=== PATIENT | female | born 1940 | race Hispanic/Latino ===

== ENCOUNTER 2018-06-11 08:22 | Emergency (ER) | payer MEDICARE ==
[~2018-06-11] VITALS: Ht 149.9 cm; Wt 74.8 kg
[2018-06-11] MEDS ORDERED: HYDROCHLOROTHIA25 MG PO (08:40)
[2018-06-11] MEDS ORDERED: ACIDOPHILUS1 EAC1 (08:40)
[2018-06-11] MEDS ORDERED: LISINOPRIL20 MG PO (08:40)
== END 2018-06-11 09:40 | disposition home or self-care (01) ==
LOC: FSED 08:22
DX: I10 Essential (primary) hypertension (principal)
CPT/HCPCS: 99283

== ENCOUNTER 2018-10-04 16:37 | Observation (INO) | payer MEDICARE, OTHER ==
[~2018-10-04] VITALS: Ht 149.9 cm; Wt 78.6 kg
[~2018-10-04 16:37] MED LIST: ACIDOPHILUS1 EAC1 PO; HYDROCHLOROTHIA25 MG PO; LISINOPRIL20 MG PO
--- OUTSIDE RECORDS SUMMARY | 2018-10-04 16:39 | XMS REPORT | Summary of Care ---
Author Author Lola Gillette M.A. Unknown Address Unknown Phone Unavailable Care Team Providers Care Manager Apple Name Role Phone GENIA NICHOLAS M.D. Unavailable Unavailable Unavailable Unavailable Functional Status Name Dates Details Functional status health issues are not documented Status: Name Dates Details Cognitive status health issues are not documented Status: Problems Name Dates Details Shoulder impingement, left (726.2, M75.42) Status: Active Cholelithiasis (574.20, K80.20) Status: Active Chronic cholecystitis (575.11, K81.1) Status: Active S/P cholecystectomy (V45.79, Z90.49) Status: Active Limb pain (729.5, M79.609) Status: Active Medications Name Dates Details Lisinopril TABS Active Aciphex TBEC * Refills: 0 Active TraMADol HCl - 50 MG Oral Tablet * Refills: 0 Active Diclofenac Sodium 1 % Transdermal Gel APPLY 4 GRAMS TOPICALLY TO AFFECTED AREA (LOWER EXTREMITIES) 4 TIMES DAILY. DO N OT APPLY MORE THAN 16 GRAMS DAILY TO ANY ONE AFFECTED JOINT * Quantity: 9 Refills: 3 GENIA NICHOLAS M.D. * Start : 16-Jun-2018 Active 100 GM Tube Allergies and Adverse Reactions Name Dates Details No Known Drug Allergies (Allergy) Status: Active Procedures Procedure Dates Details Procedures not documented Immunization Name Dates Details Immunizations not documented Family History Name Dates Details No pertinent family history (V49.89, Z78.9) Status: Active Social History Name Dates Details - Status: Name Dates Details Never smoker Vital Signs Date Test Result Details [id number] Height 60 in Status: Weight 165 lb Status: Body Mass Index Calculated 32.22 kg/m2 Status: Body Surface Area Calculated 1.72 m2 Status: Results Date Description Value Details [id number] [U] XRAY KNEE 4 OR MORE VWS LEFT 10629 XR KNEE 4 OR MORE VWS LEFT Images acquired, not reported on this accession number. Plan of Care Name Dates Details Planned Observations Planned Goals not documented Planned Encounters Appointment; GENIA NICHOLAS M.D. On: 21-Sep-2018 9:00 Interventions Provided Medication Changes* Diclofenac Sodium 1 % Transdermal Gel - Start Labs/Procedures/Imaging* [U] XRAY KNEE 4 OR MORE VWS LEFT 23616; Done: 16 Jun 2018 Instructions Name Dates Details Instructions not documented Encounters Appointment; TAMMY PALACIOS Encounter Diagnosis: Problem not documented On: 20-Jul-2016 13:00 Appointment; TAMMY PALACIOS Encounter Diagnosis: Problem not documented On: 07-Sep-2016 10:15 Appointment; GENIA NICHOLAS M.D. Encounter Diagnosis: Problem not documented On: 16-Jun-2018 13:30
[2018-10-04] MEDS ORDERED: HYDRALAZINE HCL 20 MG/ML VIAL IV ONE (17:00)
[2018-10-04] MEDS ORDERED: CLONIDINE HCL 0.2 MG TAB PO ONE (17:00)
[2018-10-04] MEDS ORDERED: ONDANSETRON HCL INJ 2 MG/ML VIAL IV PRN (18:45)
[2018-10-04] MEDS ORDERED: ACETAMINOPHEN 325 MG TAB PO PRN (18:45)
[2018-10-04] MEDS ORDERED: ENALAPRILAT IV INJ 1.25 MG/ML VIAL IV PRN (18:45)
[2018-10-04] MEDS ORDERED: DIPHENHYDRAMINE HCL INJ 50 MG/ML VIAL IV PRN (18:45)
[2018-10-04] MEDS ORDERED: CLONIDINE HCL 0.2 MG TAB PO PRN (18:45)
[2018-10-04] MEDS ORDERED: MORPHINE SULFATE 2 MG/ML SYR IV PRN (18:45)
[2018-10-04] MEDS ORDERED: DEXTROSE 5% 1,000 ML IV ONE (19:00)
[2018-10-04] MEDS ORDERED: IOPAMIDOL 370 MG/ML 50ML INFUS..BTL INJ ONE (19:15)
[2018-10-04] MEDS: FAMOTIDINE 20 MG/2 ML VIAL IV SCH (19:17)
--- NOTE | 2018-10-04 19:33 | Diagnostic Imaging Report ---
EXAM: CT Abdomen and Pelvis WITH contrast INDICATION: Abdominal pain. COMPARISON: None. TECHNIQUE: Abdomen and pelvis were scanned utilizing a multidetector helical scanner from the lung base to the pubic symphysis after administration of IV contrast. Coronal and sagittal reformations were obtained. Routine protocol was performed. Scan was performed when during portal venous phase. IV CONTRAST: 100 cc Isovue-370 ORAL CONTRAST: Water RADIATION DOSE: Total DLP: 798.79 mGy*cm Estimated effective dose: (DLP x 0.015 x size factor) mSv COMPLICATIONS: None FINDINGS: LINES and TUBES: None. LOWER THORAX: Moderate size sliding hiatal hernia with the upper portion of the stomach within the lower posterior mediastinum. Bibasilar dependent atelectasis. HEPATOBILIARY: Mild hepatic steatosis. No focal hepatic lesions. No biliary ductal dilation. GALLBLADDER: Surgically absent. SPLEEN: Mildly prominent spleen measures 13.7 cm in AP dimension. There is also prominence of a splenule which measures 3.0 cm on image 18 series 2. PANCREAS: No focal masses or ductal dilatation. ADRENALS: No adrenal nodules. KIDNEYS/URETERS: Kidneys enhance symmetrically. No hydronephrosis. No cystic or solid mass lesions. No stones. GI TRACT: No abnormal distention, wall thickening, or evidence of bowel obstruction. Scattered colonic diverticulosis without diverticulitis. Appendix is not visualized. PELVIC ORGANS/BLADDER: No acute abnormality. LYMPH NODES: No lymphadenopathy VESSELS: There is mild atherosclerotic disease in the aorta and major arterial branches. Prominent left gonadal vein. PERITONEUM / RETROPERITONEUM: No free air or fluid. BONES: There are degenerative changes in the lumbar spine. SOFT TISSUES: Unremarkable. IMPRESSION: 1. Moderate sized sliding hiatal hernia. 2. Mild colonic diverticulosis without acute diverticulitis. 3. Mild splenomegaly. 4. Hepatic steatosis. Signed by: Dr. Didier Campbell M.D. on 10/04/2018 7:30 PM
[2018-10-04] MEDS ORDERED: ZOLPIDEM TARTRATE 5 MG TAB PO PRN (21:00)
[2018-10-04 22:20] VITALS: BP 137/76
[2018-10-04 23:37] VITALS: BP 137/76
[2018-10-05] VITALS: BP 115/77
[2018-10-05 04:00] VITALS: BP 132/68
[2018-10-05 05:28] LABS: BASOPHILS % 0.7 % (0.0-1.0); EOSINOPHILS # (AUTO) 0.2 (0.0-0.4); EOSINOPHILS % 2.9 % (0.0-6.0); HEMATOCRIT 35.4 % (34.2-44.1); HEMOGLOBIN 12.1 g/dL (12.0-16.0); LYMPHOCYTES # (AUTO) 1.7 (1.0-3.2); LYMPHOCYTES % 29.5 % (18.0-39.1); MEAN CORPUSCULAR HEMOGLOBIN 30.7 pg (28-32); MEAN CORPUSCULAR HGB CONC 34.2 g/dL (31-35); MEAN CORPUSCULAR VOLUME 89.8 fL (81-99); MONOCYTES # (AUTO) 0.3 (0.2-0.8); MONOCYTES % 5.7 % (4.4-11.3); NEUTROPHILS # (AUTO) 3.4 (2.1-6.9); PLATELET COUNT 125 x10e3/uL (140-360); RED BLOOD COUNT 3.94 x10e6/uL (3.6-5.1); RED CELL DISTRIBUTION WIDTH 12.6 % (11.7-14.4)
[2018-10-05 05:29] VITALS: BP 115/77
[2018-10-05 06:07] LABS: ALANINE AMINOTRANSFERASE 22 IU/L (0-55); ALBUMIN 3.5 g/dL (3.5-5.0); ALBUMIN/GLOBULIN RATIO 1.1 (0.8-2.0); ALKALINE PHOSPHATASE 46 IU/L (40-150); ANION GAP 13.4 mmol/L (8-16); BLOOD UREA NITROGEN 12 mg/dL (7-26); BUN/CREATININE RATIO 15 (6-25); CALCIUM 9.4 mg/dL (8.4-10.2); CARBON DIOXIDE 25 mmol/L (22-29); CHLORIDE 104 mmol/L (98-107); EST GLOMERULAR FILTRATION RATE > 60 ML/MIN (60-); GLUCOSE 100 mg/dL (74-118); MAGNESIUM 2.2 MG/DL (1.3-2.1); PHOSPHORUS 3.9 MG/DL (2.3-4.7); POTASSIUM 3.4 mmol/L (3.5-5.1); SODIUM 139 mmol/L (136-145)
[2018-10-05] MEDS ORDERED: IRON PO (07:22)
[2018-10-05 08:22] VITALS: BP 131/69
[2018-10-05] MEDS ORDERED: HYDROCHLOROTHIAZIDE 25 MG TAB PO SCH (09:00)
[2018-10-05] MEDS ORDERED: LISINOPRIL 20 MG TAB PO SCH (09:00)
[2018-10-05] MEDS ORDERED: IRON 325 MG PO SCH (09:00)
[2018-10-05] MEDS ORDERED: LACTOBACILLUS ACIDOPHILUS CAPSULE PO SCH (09:00)
[2018-10-05] MEDS ORDERED: POTASSIUM CHLORIDE 20 MEQ TAB CR PO STA (09:04)
[2018-10-05] MEDS: FAMOTIDINE 20 MG/2 ML VIAL IV SCH (09:11)
--- NOTE | 2018-10-05 10:18 | Consultation ---
DATE OF CONSULTATION: October 05, 2018 RENAL CONSULTATION REASON FOR CONSULTATION: Hypernatremia. HISTORY OF PRESENT ILLNESS: A 78-year-old female with history of hypertension presented to [facility] with abdominal pain. The patient states she was in her usual state of health until yesterday when she developed abdominal pain. Pain was not associated with nausea, vomiting, or diarrhea. There was no fevers. There was no chills. At this time, the patient's symptoms are completely resolved. She is ambulating in the room anxious to go home. The patient was noted on labs to have hypernatremia, and nephrology consultation was called. The patient again denied any nausea, vomiting, diarrhea, or being on any extra diuretics. REVIEW OF SYSTEMS: As above. All other systems negative. PAST MEDICAL HISTORY 1. Hypertension. 2. GERD. PAST SURGICAL HISTORY 1. Cholecystectomy. 2. Ankle surgery. 3. Appendectomy. SOCIAL HISTORY: No tobacco. No alcohol. No IV drugs. FAMILY HISTORY: No family history of kidney disease. ALLERGIES: NO KNOWN DRUG ALLERGIES. HOME MEDICATIONS: Included lisinopril, hydrochlorothiazide. PHYSICAL EXAMINATION VITALS: Blood pressure 131/69, pulse 72, respiratory rate 16, temperature 96.4. GENERAL: No apparent distress. HEENT: Oropharynx clear. No scleral icterus. No peripheral edema. NECK: Supple. No elevation of jugular venous pressure. No lymphadenopathy. CHEST: Clear to auscultation anteriorly bilaterally. CARDIOVASCULAR: Regular rate and rhythm. No murmurs or rubs. ABDOMEN: Soft. Positive bowel sounds. No tenderness. No rebound. EXTREMITIES: No edema. No clubbing. No cyanosis. SKIN: Warm. LABS: Sodium 139, potassium 3.4. Sodium was 157 in urgent care. BUN 12, creatinine 0.8. Magnesium 2.2. CT of abdomen and pelvis shows moderate size sliding hiatal hernia, mild colonic diverticulosis without acute diverticulitis. ASSESSMENT AND PLAN 1. Hypernatremia, resolved: Suspect she possibly had lab error. The patient only received 1 L of dextrose, which would not have corrected sodium to this degree. The patient's only possible cause of being dehydrated was hydrochlorothiazide, but doubt that is the etiology. The patient denies drinking copious amounts of water. 2. Hypokalemia, replaced. 3. Hypertension: Blood pressure controlled. 4. Abdominal pain, resolved. Discussed with Dr. Miller. The patient is cleared for discharge. Job#: [id number] [place]
--- NOTE | 2018-10-05 11:16 | History and Physical ---
HISTORY OF PRESENT ILLNESS: This 78-year-old female, with past medical history positive for hypertension and gastroesophageal reflux disease, came to the emergency room complaining of abdominal pain. She was found to have hyponatremia and hypokalemia also. She was admitted to the hospital. CT of the abdomen showed fatty liver, hiatal hernia and diverticulosis. REVIEW OF SYSTEMS CARDIOVASCULAR: No chest pain or palpitations. RESPIRATORY: No shortness of breath and no cough. GASTROINTESTINAL: No nausea. No vomiting. No diarrhea. GENITOURINARY: No frequency. No dysuria. ALLERGIES: SHE IS NOT ALLERGIC TO ANYTHING. SOCIAL HISTORY: She does not smoke. She does not drink. PAST MEDICAL HISTORY: Hypertension and gastroesophageal reflux disease. PHYSICAL EXAMINATION HEART: Regular rhythm. Normal S1 and S2 sounds. LUNGS: Clear bilaterally. ABDOMEN: Soft. No tenderness. No distention. No visceromegaly. EXTREMITIES: No evidence of cyanosis, edema or trauma. VITALS: Blood pressure 131/69, temperature 96.4, heart rate 72 per minute, respiratory rate 16 per minute. Oxygen saturation 99%. LABS: On the BMP, sodium is 139, potassium 3.4, chloride 104, CO2 25, BUN 12, creatinine 0.80. Glucose 100. On the CBC, white blood count is 5.59; hemoglobin 12.1; hematocrit 35.4; platelet count 125,000. AST 27, ALT 22, total bilirubin 0.8, alkaline phosphatase 46. FINAL IMPRESSION 1. Abdominal pain, which is completely resolved with unremarkable abdominal CT. 2. Hyponatremia, which is resolved. 3. Hypokalemia. 4. Hypertension. Potassium has been replaced. Patient was told whenever she takes hydrochlorothiazide to take the potassium because she has not been doing that. Continue with the rest of the medications, which include Ambien 5 mg at night p.r.n. for sleep, ferrous sulfate 325 mg daily, Pepcid 20 mg twice a day, hydrochlorothiazide 12.5 mg daily, lisinopril 20 mg daily, lactobacillus acidophilus 1 tablet daily. Patient is going home today. The patient has been seen by Dr. Pereira, detasseling crew supervisor, also. She was told to follow up with her primary care physician in a week. Job#: [id number]
[2018-10-05] MEDS ORDERED: FERROUS SULFATE 325 MG TAB PO SCH (12:00)
--- NOTE | 2018-10-05 14:21 | Discharge Summary ---
HISTORY OF PRESENT ILLNESS: Patient is a 78-year-old female with past medical history positive for hypertension, fatty liver, gastroesophageal reflux disease. Came here complaining of abdominal pain. She was found to have hypernatremia and hypokalemia. Hypernatremia has been resolved after IV fluids, and potassium has been given for the hypokalemia. Patient is going to have a [facility] as an outpatient. Patient is going home today. She has been seen also by Dr. Pereira, nephrology, who recommended for her to be discharged. PHYSICAL EXAM: Blood pressure 131/69, temperature 96.4, heart rate 72 per minute, respiratory rate is 16 per minute, oxygen saturation 97%. The heart shows regular rhythm, normal S1 and S2 sounds. Lungs are clear bilaterally. Abdomen soft. No tenderness, no distention, no visceromegaly. FINAL IMPRESSIONS: 1. Abdominal pain. 2. Hypernatremia. 3. Hypokalemia. 4. Hypertension. PLAN OF TREATMENT: Continue with the hydrochlorothiazide, lisinopril, potassium that she was taking outside, ferrous sulfate and Ambien. Follow with her PCP in a week. MIKA ARDON MD Job#: [id number] EV
== END 2018-10-05 10:43 | disposition home or self-care (01) ==
LOC: FSED 16:37 → ERHOLD 18:42 → IMCU 22:19
PROVIDERS: ADMIT Internal Medicine; ATTEND Internal Medicine
DX: R10.31 Right lower quadrant pain (principal); I10 Essential (primary) hypertension; K21.9 Gastro-esophageal reflux disease without esophagitis; E87.6 Hypokalemia; E86.0 Dehydration; K76.0 Fatty (change of) liver, not elsewhere classified; E87.0 Hyperosmolality and hypernatremia
CPT/HCPCS: 36415; 74177; 80053 ×2; 80307; 82553; 83735; 83935; 84100; 84300; 84484; 85025 ×2; 85379; 99284; G0378 ×2; J0360; J1200; J2270; J2405; J7070; Q9967